=== PATIENT | female | born 1995 | race African-American/Black ===

== ENCOUNTER 2017-12-27 00:05 | Emergency (ER) | payer MEDICAID ==
[~2017-12-27] VITALS: Ht 162.6 cm; Wt 93.0 kg
[2017-12-27 00:15] VITALS: BP_SYST 124
[2017-12-27] MEDS ORDERED: IBUPROFEN 800 MG TABLET PO ONE (00:45)
[2017-12-27] MEDS ORDERED: AMOXICILLIN/CLAVULANATE POTASSIUM 875 MG TABLET PO ONE (00:45)
[2017-12-27 01:09] VITALS: BP_SYST 121
== END 2017-12-27 01:09 | disposition home or self-care (01) ==
LOC: SED 00:05
DX: J02.9 Acute pharyngitis, unspecified (principal); J45.909 Unspecified asthma, uncomplicated; R03.0 Elevated blood-pressure reading, without diagnosis of hypertension
CPT/HCPCS: 99283